=== PATIENT | male | born 1945 | race Caucasian/White ===

== ENCOUNTER 2023-09-27 16:28 | Emergency (ER) | payer MEDICARE, SELFPAY ==
[2023-09-27] VITALS (13 sets, daily range): BP systolic 131–169; BP diastolic 66–96; PULSE 85–97; RESP 12–32; TEMP 36.6; O2SAT 98–100; BMI 18.1
--- NOTE | 2023-09-27 16:39 | EKG12_ITS ---
Test Reason : CP Blood Pressure : / mmHG Vent. Rate : 090 BPM Atrial Rate : 090 BPM P-R Int : 152 ms QRS Dur : 080 ms QT Int : 414 ms P-R-T Axes : 093 069 029 degrees QTc Int : 506 ms Normal sinus rhythm ST & T wave abnormality, consider inferior ischemia Prolonged QT Abnormal ECG No previous ECGs available Confirmed by KATHRYN CALVO, NAYAN ([id number]), international editorial producer SAMIRA BIANCHI ([id number]) on 09/29/2023 9:03:53 AM Referred By: YUNG/CELESTINE Confirmed By:NAYAN PERALTA MD
--- NOTE | 2023-09-27 16:45 | RAD_ITS ---
STUDY: X-RAY CHEST REASON FOR EXAM: Male, 77 years old. chest pain TECHNIQUE: Single AP portable view of the chest. COMPARISON: None. FINDINGS: The lungs are clear and expanded. There is no demonstrated pleural abnormality. Normal size heart. Normal mediastinum and xander. Normal visualized pulmonary arteries. Normal visualized aortic arch and descending thoracic aorta. Possible osteopenia. Normal visualized ribs, clavicles, and shoulders. There is no demonstrated abnormality of the visualized soft tissue structures of the upper abdomen. RAD/Chest 1 View (Portable) IMPRESSION: No acute cardiopulmonary disease. Electronically Signed: Ela Cho MD at 17:18 [facility] ,
[2023-09-27 16:56] LABS: Absolute Lymphocyte Count 1.63 X10^3/uL (0.83-4.51); Absolute Neutrophil Count 4.3 X10^3/uL (2.0-7.7); Basophil# 0.03 X10^3/uL; Basophil% 0.5 % (0-1); Eosinophil# 0.04 X10^3/uL; Eosinophils% 0.6 % (0-5); Hematocrit 42.4 % (40-54); Hemoglobin 14.2 g/dL (13.0-16.5); Lymphocyte # 1.63 X10^3/ul (0.83-4.51); Lymphocyte % 25.6 % (19-41); Mean Corp Hgb Conc 33.5 g/dL (32-36); Mean Corpuscular Hgb 30.7 pg (27.0-32.0); Mean Corpuscular Volume 91.6 fL (80-94); Monocyte# 0.39 X10^3/uL; Monocyte% 6.1 % (0-10); NRBC Flagged by Analyzer 0 % (0-5); Neutrophil # 4.25 X10^3/uL (2.7-7.7); Neutrophil % 66.9 % (47-70); Platelet Count 278 K/mm3 (150-450); RBC Distribution Width CV 12.7 % (11.6-14.6); RBC Distribution Width SD 42.1 fl (35.1-43.9); Red Blood Count 4.63 M/mm3 (4.6-6.2); White Blood Count 6.4 K/mm3 (4.4-11.0)
[2023-09-27 17:12] LABS: Prothrombin Time (Protime)PT. 12.8 SECONDS (11.7-14.9)
--- NOTE | 2023-09-27 17:35 | CT_ITS ---
STUDY: CT BRAIN WITHOUT CONTRAST REASON FOR EXAM: Male, 77 years old. headache RADIATION DOSAGE (If Supplied By Facility): CTDIvol = ( 44.99 ) mGy, DLP = ( 829.85 ) mGycm TECHNIQUE: Transaxial CT imaging of the brain was performed without administration of intravenous contrast material. Individualized dose optimization techniques were used for this CT. COMPARISON: No relevant priors. FINDINGS: Normal soft tissue structures. Normal calvarium. There is mild to moderate cerebral atrophy with widening of the extra-axial spaces and ventricular dilatation. Normal white matter tracts of the cerebral hemispheres. There are small punctate calcifications of the basal ganglia which are seen in the aging brain as a normal variant. Normal brainstem. Normal cerebellum. There is no intracranial hemorrhage. There are no findings of an acute ischemic infarction. Normal visualized paranasal sinuses. CT/Brain/Head without Contrast IMPRESSION: Involutional changes otherwise normal CT brain for age. Specifically, no acute intracranial hemorrhage or space-occupying lesion. Electronically Signed: Ela Cho MD at 17:50 EST ,
--- NOTE | 2023-09-27 17:37 | EDS_ITS ---
HPI <BECKY Ellsworth - Last Filed: 09/27/23 20:28> History of Present Illness Chief Complaint: Chest Pain Narrative Narrative: Patient is a 77-year-old male with history of atrial fibrillation on metoprolol, not currently on any anticoagulation medicine who presents to the emergency department for feeling of indigestion, dizziness, intermittent headaches. Patient states today he was feeling well, he ate a pancake and 1/2 cup of coffee, when he got up, he states he felt dizzy, some sort of an indigestion feeling in his chest thought he was going to fall down, sat back down and the symptoms went away. Patient states that he has been having intermittent headaches over the last 2 to 3 days however does not have a headache now. Secondary to this feeling, he is here for evaluation. Patient does have history of acid reflux and has some sort of an episode every day. He denies any fever chills nausea or vomiting. [facility] <BECKY Ellsworth - Last Filed: 09/27/23 20:28> [facility] Medical History (Updated 09/27/23 @ 20:28 by BECKY Ellsworth) BPH (benign prostatic hyperplasia) Hypertension Social History Smoking Status: Former smoker ROS <BECKY Ellsworth - Last Filed: 09/27/23 20:28> ROS ED ROS Narrative Constitutional: Negative for fever, chills, weight loss, weakness Eyes: Negative for vision loss, vision change, double vision ENT: Negative for any sore throat, ear pain, congestion Cardiovascular: Negative for any chest pain, tightness, palpitations Respiratory: Negative for any cough, sputum production, hemoptysis, dyspnea, dy spnea on exertion, orthopnea Gastrointestinal: Negative for any abdominal pain, nausea, vomiting, diarrhea, constipation, blood in stool, blood in vomit. Positive for epigastric discomfort, acid reflux : Negative for any urinary frequency, dysuria, retention, blood in urine Muscle skeletal: Negative for any myalgias, arthralgias, neck pain, back pain Neurological: Negative for any syncope, paresthesias, for dizziness, difficulty with balance. Positive intermittent headache Skin: Negative for any rashes, lumps, itching, abrasions, lacerations Psychiatric: Negative for any depression, anxiety, stress, suicidal ideation, homicidal ideation Hematologic: Negative for any easy bruising, excessive bruising, easy bleeding Allergies: Negative for any eczema, hives, rash EXAM <BECKY Ellsworth - Last Filed: 09/27/23 20:28> Physical Exam Narrative Exam Narrative: Vital signs reviewed. Patient at this time has no symptoms, patient states he feels back to normal HEET: Head normocephalic atraumatic, TMs clear bilaterally. Posterior pharynx is clear, moist mucous membranes. Nares clear bilaterally. Neck: Supple with no lymphadenopathy or tenderness. No signs of meningismus. Cardiac: Regular rate and rhythm no murmurs gallops or rubs, equal peripheral pulses bilaterally. Respiratory: Lungs clear to auscultation bilaterally. No chest tenderness. Abdomen: Soft, nontender, nondistended. No abdominal bruit or pulsatile masses. No hepatosplenomegaly Extremities: No peripheral edema, no signs of gross trauma or deformity. Active full range of motion of all extremities. Neuro: Cranial nerves II through XII intact, no focal neurological deficits. Skin: Clean dry and intact with no rash, purpura, petechiae, vesicles or pustules. Backs/flank: No CVA tenderness, no midline spinal tenderness, no deformity. Psych: Normal mood and affect. No SI, HI or acute psychosis. Const Vital Signs: 09/27/23 16:28 09/27/23 17:26 09/27/23 17:26 Temperature 98 F Temperature Source Temporal Pulse Rate 85 Respiratory Rate 18 Respiratory Effort Normal Respiratory Pattern Normal Blood Pressure 167/96 H Blood Pressure Mean 119 Pulse Ox 100 Oxygen Delivery Method Room Air Room Air 09/27/23 17:26 09/27/23 17:30 09/27/23 17:45 Temperature Temperature Source Pulse Rate 93 94 Respiratory Rate 12 25 H Respiratory Effort Respiratory Pattern Blood Pressure 161/75 H Blood Pressure Mean 100 Pulse Ox 98 Oxygen Delivery Method 09/27/23 17:50 09/27/23 18:00 09/27/23 18:10 Temperature Temperature Source Pulse Rate 93 92 96 Respiratory Rate 32 H 12 16 Respiratory Effort Respiratory Pattern Blood Pressure 169/73 H Blood Pressure Mean 98 Pulse Ox 100 99 Oxygen Delivery Method Room Air 09/27/23 18:20 09/27/23 18:30 09/27/23 18:40 Temperature Temperature Source Pulse Rate 97 94 87 Respiratory Rate 18 16 18 Respiratory Effort Respiratory Pattern Blood Pressure Blood Pressure Mean Pulse Ox 100 100 Oxygen Delivery Method 09/27/23 18:50 09/27/23 19:00 09/27/23 20:35 Temperature Temperature Source Pulse Rate 90 97 Respiratory Rate 18 16 Respiratory Effort Respiratory Pattern Blood Pressure 152/66 H 131/71 H Blood Pressure Mean 91 91 Pulse Ox 100 98 100 Oxygen Delivery Method Room Air Positive well nourished and well developed General Appearance ED: well developed <Dr. Hemant Gar DO - Last Filed: 09/27/23 22:34> Physical Exam Const Vital Signs: 09/27/23 16:28 09/27/23 17:26 09/27/23 17:26 Temperature 98 F Temperature Source Temporal Pulse Rate 85 Respiratory Rate 18 Respiratory Effort Normal Respiratory Pattern Normal Blood Pressure 167/96 H Blood Pressure Mean 119 Pulse Ox 100 Oxygen Delivery Method Room Air Room Air 09/27/23 17:26 09/27/23 17:30 09/27/23 17:45 Temperature Temperature Source Pulse Rate 93 94 Respiratory Rate 12 25 H Respiratory Effort Respiratory Pattern Blood Pressure 161/75 H Blood Pressure Mean 100 Pulse Ox 98 Oxygen Delivery Method 09/27/23 17:50 09/27/23 18:00 09/27/23 18:10 Temperature Temperature Source Pulse Rate 93 92 96 Respiratory Rate 32 H 12 16 Respiratory Effort Respiratory Pattern Blood Pressure 169/73 H Blood Pressure Mean 98 Pulse Ox 100 99 Oxygen Delivery Method Room Air 09/27/23 18:20 09/27/23 18:30 09/27/23 18:40 Temperature Temperature Source Pulse Rate 97 94 87 Respiratory Rate 18 16 18 Respiratory Effort Respiratory Pattern Blood Pressure Blood Pressure Mean Pulse Ox 100 100 Oxygen Delivery Method 09/27/23 18:50 09/27/23 19:00 09/27/23 20:35 Temperature Temperature Source Pulse Rate 90 97 Respiratory Rate 18 16 Respiratory Effort Respiratory Pattern Blood Pressure 152/66 H 131/71 H Blood Pressure Mean 91 91 Pulse Ox 100 98 100 Oxygen Delivery Method Room Air MDM <BECKY Ellsworth - Last Filed: 09/27/23 20:28> MDM Lab Data Labs: Laboratory Results - last 24 hr 09/27/23 09/27/23 16:42 18:51 WBC 6.4 RBC 4.63 Hgb 14.2 Hct 42.4 MCV 91.6 MCH 30.7 MCHC 33.5 RDW Std Deviation 42.1 RDW Coeff of Milad 12.7 Plt Count 278 MPV 10.0 Immature Gran % (Auto) 0.300 Neut % (Auto) 66.9 Lymph % (Auto) 25.6 Bertie % (Auto) 6.1 Eos % (Auto) 0.6 Baso % (Auto) 0.5 Absolute Neuts (auto) 4.3 Absolute Lymphs (auto) 1.63 Nucleated RBC % 0 PT 12.8 INR 1.0 Sodium 141 Potassium 3.5 Chloride 110 H Carbon Dioxide 26.0 Anion Gap 5 BUN 12 Creatinine 0.94 Estim Creat Clear Calc 47.42 Est GFR (MDRD) Af Amer 99 Est GFR (MDRD) Non-Af 82 BUN/Creatinine Ratio 12.7 Glucose 170 H Calcium 8.7 Total Bilirubin 0.50 Direct Bilirubin 0.14 AST 16 ALT 23 Alkaline Phosphatase 74 Troponin I High Sens 7 10 Total Protein 6.9 Albumin 3.6 Globulin 3.3 Lipase 44 Radiography Diagnostic Testing: Clinical Impression(s) from Imaging Studies Chest X-Ray 09/27/23 16:45 IMPRESSION: No acute cardiopulmonary disease. Electronically Signed: Ela Cho MD at 17:18 EST Reading Location ID and State: [id number] / [email or web address] , Service support , Brain CT 09/27/23 17:35 IMPRESSION: Involutional changes otherwise normal CT brain for age. Specifically, no acute intracranial hemorrhage or space-occupying lesion. Electronically Signed: Ela Cho MD at 17:50 EST , EKG Normal sinus rhythm: Attestation: I personally reviewed and interpreted this EKG as follows: Comments: Sinus rhythm, rate of 90 bpm, VT 152 ms, QRS duration 80 ms, no acute ST elevation, no acute infarct noted. Treatment and Re-Evaluation :: Patient appears generally well, patient appears nontoxic, vital signs are stable. Presenting to the emergency department with epigastric pain, acid reflux, intermittent headaches. Differential diagnose includes ACS, AR, gastritis, GERD, stroke, dehydration. Patient received basic laboratory values including liver panel as well as lipase. Patient will have 2 troponins drawn, look for any electrolyte abnormality. Patient is asymptomatic at this time. EKG was unremarkable. Patient's chest x-ray shows no acute cardiopulmonary disease. Patient laboratory eval showed normal CBC, patient's PT/INR within normal limits, chemistries were unremarkable, initial troponin was 7 which is negative. Patient will receive a second troponin which is a 2-hour delta. All radiologic examinations were read, reviewed by the emergency department attending. From these reads, a plan of care will be put in place. Patient remains asymptomatic Acute troponin was 10, this is again negative. At this time, there is no evidence of any ACS, AR. Patient at this time is stable for discharge. Patient be diagnosed with GERD. Instructed to stay away from spicy foods. Patient stable for discharge. <Dr. Hemant Gar, DO - Last Filed: 09/27/23 22:34> [facility] Narrative Medical decision making narrative: Patient appears generally well, patient appears nontoxic, vital signs are stable. Presenting to the emergency department with epigastric pain, acid reflux, intermittent headaches. Differential diagnose includes ACS, AR, gastritis, GERD, stroke, dehydration. Patient received basic laboratory values including liver panel as well as lipase. Patient will have 2 troponins drawn, look for any electrolyte abnormality. Patient is asymptomatic at this time. EKG was unremarkable. Patient's chest x-ray shows no acute cardiopulmonary disease. Patient laboratory eval showed normal CBC, patient's PT/INR within normal limits, chemistries were unremarkable, initial troponin was 7 which is negative. Patient will receive a second troponin which is a 2-hour delta. All radiologic examinations were read, reviewed by the emergency department attending. From these reads, a plan of care will be put in place. Patient remains asymptomatic Acute troponin was 10, this is again negative. At this time, there is no evidence of any ACS, AR. Patient at this time is stable for discharge. Patient be diagnosed with GERD. Instructed to stay away from spicy foods. Patient stable for discharge. This patient was seen with a PA/MECHANICAL ENGINEERING INTERN Individually assessed they patient including history and physical. I have reviewed everything on the chart that is available and agree with the documentation provided by the PA/MECHANICAL ENGINEERING INTERN including discussion about the assessment, treatment plan, discussion, and return precautions. Patient presenting with chest pain. States started with dyspepsia. States he had some acid reflux related but not in his throat. This started this morning. Patient does state that he ate pizza last evening and also states that Dr. Lacy is specifically told him to avoid both red sauce and carbonated beverages because of the symptoms. Differential as above. Ultimately his cardiac workup is negative and his lab work is normal. Chest x-ray my interpretation shows no acute process. Radiologist interprets this and agrees. EKG shows a normal sinus rhythm at 90 bpm without sign of ischemic change. Patient feeling improved on reevaluation. We discussed his workup at length. He feels comfortable going home at this point. Return precautions were discussed. Lab Data Labs: Laboratory Results - last 24 hr 09/27/23 09/27/23 16:42 18:51 WBC 6.4 RBC 4.63 Hgb 14.2 Hct 42.4 MCV 91.6 MCH 30.7 MCHC 33.5 RDW Std Deviation 42.1 RDW Coeff of Milad 12.7 Plt Count 278 MPV 10.0 Immature Gran % (Auto) 0.300 Neut % (Auto) 66.9 Lymph % (Auto) 25.6 Bertie % (Auto) 6.1 Eos % (Auto) 0.6 Baso % (Auto) 0.5 Absolute Neuts (auto) 4.3 Absolute Lymphs (auto) 1.63 Nucleated RBC % 0 PT 12.8 INR 1.0 Sodium 141 Potassium 3.5 Chloride 110 H Carbon Dioxide 26.0 Anion Gap 5 BUN 12 Creatinine 0.94 Estim Creat Clear Calc 47.42 Est GFR (MDRD) Af Amer 99 Est GFR (MDRD) Non-Af 82 BUN/Creatinine Ratio 12.7 Glucose 170 H Calcium 8.7 Total Bilirubin 0.50 Direct Bilirubin 0.14 AST 16 ALT 23 Alkaline Phosphatase 74 Troponin I High Sens 7 10 Total Protein 6.9 Albumin 3.6 Globulin 3.3 Lipase 44 Radiography Diagnostic Testing: Clinical Impression(s) from Imaging Studies Chest X-Ray 09/27/23 16:45 IMPRESSION: No acute cardiopulmonary disease. Electronically Signed: Ela Cho MD at 17:18 EST , Brain CT 09/27/23 17:35 IMPRESSION: Involutional changes otherwise normal CT brain for age. Specifically, no acute intracranial hemorrhage or space-occupying lesion. Electronically Signed: Ela Cho MD at 17:50 EST , Discharge Plan Triage Chief Complaint: Chest Pain ED Midlevel Provider: Russell Mack ED Provider: Hemant Gar Dx/Rx/DC Orders Clinical Impression: Dizziness, Abdominal pain, epigastric Instructions: ED Epigastric Pain Uncertain Cause Primary Care Provider: Fermin Lacy Referrals: Fermin Lacy MD [Primary Care Provider] - Disposition Disposition: Home, Self Care Discharge Date/Time: 09/27/23 20:41
[2023-09-27 17:44] LABS: Anion Gap 5 (5-15); BUN 12 mg/dL (7-18); BUN/Creat Ratio 12.7 RATIO (10-20); Calcium,Total 8.7 mg/dL (8.5-10.1); Chloride 110 mmol/L (98-107); Creatinine, Serum 0.94 mg/dL (0.70-1.30); EST Glomerular Filtration Rate 82 mL/min (>60); Est Glom Filt Rate - Afr Amer 99 mL/min (>60); Estimated Creatinine Clearance 47.42 ml/min; Glucose 170 mg/dL (74-106); Potassium 3.5 mmol/L (3.5-5.1); Sodium Level 141 mmol/L (136-145); Troponin-I HS (w/2H Reflex) 7 pg/mL (3.0-78.0)
[2023-09-27 18:07] LABS: Lipase 44 U/L (13-75)
[2023-09-27 18:10] LABS: AST(SGOT) 16 U/L (15-37); Alanine Aminotransfer ALT/SGPT 23 U/L (16-61); Albumin, Serum 3.6 g/dL (3.2-5.0); Alkaline Phosphatase 74 U/L (45-117); Bilirubin, Direct 0.14 mg/dL (0.00-0.30); Globulin 3.3 g/dL (2.2-4.2); Protein, Total 6.9 g/dL (6.4-8.2)
[2023-09-27 18:51] LABS: Reflex Troponin-HS? (from REC) Y
[2023-09-27 19:19] LABS: Troponin-I HS 10 pg/mL (3.0-78.0)
== END 2023-09-27 20:41 | disposition home or self-care (01) ==
PROVIDERS: Nurse Practitioner; Emergency Provider Student in an Organized Health Care Education/Training Program; PCP Family Medicine; Visit Provider Student in an Organized Health Care Education/Training Program
DX: R10.13 Epigastric pain (principal); I48.91 Unspecified atrial fibrillation; R42 Dizziness and giddiness; Z87.891 Personal history of nicotine dependence; Z79.899 Other long term (current) drug therapy; I10 Essential (primary) hypertension
CPT/HCPCS: 70450; 71045; 80048; 80076; 83690; 84484; 85025; 85610; 93005; 99284